=== PATIENT | male | born 1995 | race Caucasian/White ===

== ENCOUNTER 2023-10-12 02:12 | Emergency (ER) | payer SELFPAY ==
[2023-10-12 02:23] VITALS: RESP 16; TEMP 99.1; BMI 26.6
[2023-10-12] MEDS ORDERED: MIDAZOLAM HCL 5 MG/1 ML Single Dose Vial ONE ×2 (02:38→02:51)
[2023-10-12] MEDS: MIDAZOLAM HCL 2 MG/2 ML SINGLE DOSE VIAL IM ONE ×3 (02:50→03:08)
[2023-10-12 03:48] VITALS: BP 114/70; PULSE 75
== END 2023-10-12 05:01 | disposition home or self-care (01) ==
LOC: JER 02:12
PROC: 0RSKXZZ Reposition Left Shoulder Joint, External Approach (ICD-10-PCS; principal; 2023-10-12)
PROC: 3E023GC Introduction of Other Therapeutic Substance into Muscle, Percutaneous Approach (ICD-10-PCS; 2023-10-12)
PROC: 3E023GC Introduction of Other Therapeutic Substance into Muscle, Percutaneous Approach (ICD-10-PCS; 2023-10-12)
DX: S43.005A Unspecified dislocation of left shoulder joint, initial encounter (principal); X58.XXXA Exposure to other specified factors, initial encounter
CPT/HCPCS: 73030-TC-LT-FY; 99284-25